=== PATIENT | female | born 1935 | race African-American/Black ===

== ENCOUNTER 2020-10-10 14:44 | Inpatient (IN) | payer MEDICARE, MEDICAID ==
[~2020-10-10] VITALS: Ht 162.6 cm; Wt 66.2 kg
[2020-10-10] MEDS ORDERED: ACETAMINOPHEN 325MG TABLET PO STA (15:16)
[2020-10-10 16:06] LABS: CHLORIDE 108 mEq/L (98-107)
[2020-10-10 16:12] LABS: BASOPHILS % 0.4 % (0.0-2.0); EOSINOPHILS % 0.8 % (0.0-5.0); HEMATOCRIT. 31.8 % (36.0-48.0); HEMOGLOBIN. 10.4 g/dL (12.0-16.0); LYMPHOCYTES % 18.8 % (20.0-50.0); MEAN CORPUSCULAR HEMOGLOBIN 30.9 pg (28.0-32.0); MEAN CORPUSCULAR VOLUME 94.8 fL (81.0-99.0); MEAN PLATELET VOLUME 7.9 fl (7.4-10.4); MONOCYTES % 14.1 % (2.0-8.0); NEUTROPHILS % 65.9 % (40.0-76.0); PLATELET 240 x1000/uL (130-400); RED BLOOD CELL COUNT 3.35 mill/uL (4.2-5.4); RED CELL DISTRIBUTION WIDTH 16.8 % (11.6-14.6)
[2020-10-10] MEDS ORDERED: FUROSEMIDE 100MG/10ML VIAL IV STA (17:41)
[2020-10-10] MEDS ORDERED: NITROGLYCERIN OINT 1GM/INCH UDPKT TD NR (17:45)
[2020-10-10] MEDS ORDERED: CALCIUM GLUCONATE 100MG/ML 10ML VIAL IV NR (17:45)
[2020-10-10] MEDS ORDERED: ASPIRIN 325MG EC TABLET PO NR (17:45)
[2020-10-10] MEDS ORDERED: IPRATROPIUM/ALBUTEROL 0.5-3(2.5)MG/3ML NEB NEB PRN (19:45)
[2020-10-10] MEDS ORDERED: GUAIFENESIN 200MG/10ML SUGAR FREE UDC PO PRN (19:45)
[2020-10-10] MEDS ORDERED: ONDANSETRON HCL 4MG/2ML INJ IV PRN (19:45)
[2020-10-10] MEDS ORDERED: TRAMADOL 50MG TABLET PO PRN (19:45)
[2020-10-10] MEDS ORDERED: DOCUSATE SODIUM 100MG CAPSULE PO PRN (19:45)
[2020-10-10] MEDS ORDERED: MAGNESIUM/ALUMINUM HYDROXIDE/SIMETHICONE 30ML UDC PO PRN (19:45)
[2020-10-10] MEDS ORDERED: CLONIDINE 0.1MG TABLET PO PRN (19:45)
[2020-10-10] MEDS ORDERED: DEXTROSE 50% WATER 50ML SYRINGE IV PRN (19:45)
[2020-10-10] MEDS ORDERED: ACETAMINOPHEN 325MG TABLET PO PRN ×2 (19:45)
[2020-10-10] MEDS ORDERED: NITROGLYCERIN 0.4MG TABLET SL SL PRN (19:45)
[2020-10-10] MEDS ORDERED: ZOLPIDEM TARTRATE 5MG TABLET PO PRN (19:45)
[2020-10-10] MEDS ORDERED: ENOXAPARIN 30MG/0.3ML SYR SUBCUT SCH (20:00)
[2020-10-10 20:18] LABS: T4 FREE 1.27 ng/dL (0.76-1.46)
[2020-10-10] MEDS: AMLODIPINE 10MG TABLET PO SCH (20:30)
[2020-10-10 20:42] LABS: FOLIC ACID (FOLATE) SERUM > 20.00 ng/mL (>5.38)
[2020-10-10] MEDS: GUAIFENESIN/DM 600MG/30MG ER TAB 12HR PO SCH (20:44)
[2020-10-10] MEDS: INSULIN LISPRO 100 UNITS/ML SUBCUT SCH (21:00)
[2020-10-10 21:09] LABS: VITAMIN B12 SERUM 748 pg/mL (211-911)
[2020-10-10] MEDS: FAMOTIDINE 20MG TABLET PO SCH (21:17)
[2020-10-10] MEDS: BLOOD SUGAR DIAGNOSTIC STRIP TEST SCH (21:17)
[2020-10-10] MEDS: ASCORBIC ACID 500 MG TABLET PO SCH (21:17)
[2020-10-10] MEDS: FUROSEMIDE 40MG/4ML VIAL IVP SCH (21:25)
[2020-10-10] MEDS: APIXABAN 2.5 MG TABLET PO SCH (21:31)
[2020-10-10 22:00] VITALS: BP 152/80
[2020-10-10] MEDS ORDERED: XAR15 MT (23:58)
[2020-10-10] MEDS ORDERED: METO-411 PO (23:58)
[2020-10-10] MEDS ORDERED: LORA10TA7 MT (23:58)
[2020-10-10] MEDS ORDERED: NEPVIT MT (23:58)
[2020-10-10] MEDS ORDERED: AMLO5TAB88 MT (23:58)
[2020-10-10] MEDS ORDERED: LEVO100T9 MT (23:58)
[2020-10-11] VITALS: BP 144/72
[2020-10-11 00:20] LABS: CREATINE KINASE 38 IU/L (26-192)
[2020-10-11 00:21] LABS: CREATINE KINASE MB FRACTION < 1.0 ng/mL (0.5-3.6)
[2020-10-11 04:00] VITALS: BP 112/69
[2020-10-11 06:03] LABS: CHLORIDE 108 mEq/L (98-107)
[2020-10-11 06:12] LABS: HEMATOCRIT. 27.6 % (36.0-48.0); HEMOGLOBIN. 8.8 g/dL (12.0-16.0); MEAN CORPUSCULAR HEMOGLOBIN 30.2 pg (28.0-32.0); MEAN CORPUSCULAR VOLUME 94.4 fL (81.0-99.0); PLATELET 206 x1000/uL (130-400); RED BLOOD CELL COUNT 2.93 mill/uL (4.2-5.4); RED CELL DISTRIBUTION WIDTH 16.6 % (11.6-14.6)
[2020-10-11 06:14] LABS: PHOSPHORUS 3.8 mg/dL (2.5-4.9)
[2020-10-11 06:17] LABS: CREATINE KINASE 35 IU/L (26-192)
[2020-10-11 06:20] LABS: CREATINE KINASE MB FRACTION < 1.0 ng/mL (0.5-3.6)
[2020-10-11] MEDS: CARVEDILOL 3.125 MG TABLET PO SCH ×2 (06:36→17:14)
[2020-10-11] MEDS: BLOOD SUGAR DIAGNOSTIC STRIP TEST SCH ×4 (06:45→20:59)
[2020-10-11] MEDS: INSULIN LISPRO 100 UNITS/ML SUBCUT SCH ×4 (07:15→20:59)
[2020-10-11 08:00] VITALS: BP 110/62
[2020-10-11] MEDS: FAMOTIDINE 20MG TABLET PO SCH ×2 (08:35→20:53)
[2020-10-11] MEDS: ZINC SULFATE 220 MG ( 50 ) CAPSULE PO SCH (08:35)
[2020-10-11] MEDS: FUROSEMIDE 40MG/4ML VIAL IVP SCH ×2 (08:35→20:53)
[2020-10-11] MEDS: GUAIFENESIN/DM 600MG/30MG ER TAB 12HR PO SCH ×2 (08:35→20:53)
[2020-10-11] MEDS: ASCORBIC ACID 500 MG TABLET PO SCH ×2 (08:35→20:53)
[2020-10-11] MEDS: ASPIRIN 81MG EC TABLET PO SCH (08:35)
[2020-10-11] MEDS: APIXABAN 2.5 MG TABLET PO SCH ×2 (08:36→20:53)
[2020-10-11] MEDS: AMLODIPINE 10MG TABLET PO SCH (08:36)
[2020-10-11 09:42] LABS: PLATELET ESTIMATE NORMAL
[2020-10-11 12:00] VITALS: BP 121/62
[2020-10-11 16:00] VITALS: BP 129/72
[2020-10-11 20:00] VITALS: BP 124/71
[2020-10-12] VITALS: BP 126/68
[2020-10-12 04:00] VITALS: BP 142/80
[2020-10-12] MEDS: BLOOD SUGAR DIAGNOSTIC STRIP TEST SCH ×4 (05:45→21:10)
[2020-10-12] MEDS: INSULIN LISPRO 100 UNITS/ML SUBCUT SCH ×4 (06:01→21:00)
[2020-10-12] MEDS: GUAIFENESIN/DM 600MG/30MG ER TAB 12HR PO SCH ×2 (06:06→21:48)
[2020-10-12] MEDS: CARVEDILOL 3.125 MG TABLET PO SCH ×2 (06:06→17:28)
[2020-10-12 08:00] VITALS: BP 126/79
[2020-10-12] MEDS: FUROSEMIDE 40MG/4ML VIAL IVP SCH ×2 (08:10→21:48)
[2020-10-12] MEDS: ZINC SULFATE 220 MG ( 50 ) CAPSULE PO SCH (08:10)
[2020-10-12] MEDS: AMLODIPINE 10MG TABLET PO SCH (08:10)
[2020-10-12] MEDS: APIXABAN 2.5 MG TABLET PO SCH ×2 (08:11→21:48)
[2020-10-12] MEDS: ASCORBIC ACID 500 MG TABLET PO SCH ×2 (08:11→21:48)
[2020-10-12] MEDS: ASPIRIN 81MG EC TABLET PO SCH (08:11)
[2020-10-12 12:00] VITALS: BP 107/63
[2020-10-12 16:00] VITALS: BP 120/65
[2020-10-12 20:00] VITALS: BP 117/64
[2020-10-12] MEDS ORDERED: FAMOTIDINE 20MG TABLET PO SCH (21:00)
[2020-10-13] VITALS: BP 127/72
[2020-10-13 04:00] VITALS: BP 116/71
[2020-10-13] MEDS: BLOOD SUGAR DIAGNOSTIC STRIP TEST SCH ×2 (05:45→11:45)
[2020-10-13] MEDS: INSULIN LISPRO 100 UNITS/ML SUBCUT SCH ×2 (05:45→11:51)
[2020-10-13] MEDS: CARVEDILOL 3.125 MG TABLET PO SCH (06:21)
[2020-10-13] MEDS: GUAIFENESIN/DM 600MG/30MG ER TAB 12HR PO SCH (06:35)
[2020-10-13 08:00] VITALS: BP 132/70
[2020-10-13] MEDS: ASCORBIC ACID 500 MG TABLET PO SCH (08:51)
[2020-10-13] MEDS: APIXABAN 2.5 MG TABLET PO SCH (08:51)
[2020-10-13] MEDS: FUROSEMIDE 40MG/4ML VIAL IVP SCH (08:51)
[2020-10-13] MEDS: ZINC SULFATE 220 MG ( 50 ) CAPSULE PO SCH (08:51)
[2020-10-13] MEDS: ASPIRIN 81MG EC TABLET PO SCH (08:52)
[2020-10-13] MEDS: AMLODIPINE 10MG TABLET PO SCH (08:52)
[2020-10-13 11:01] VITALS: BP 132/70
[2020-10-13 12:00] VITALS: BP 128/77
== END 2020-10-13 12:30 | disposition home health service (06) | DRG 194 ==
LOC: ER 14:44 → 5WST 19:10 → EDBEDREQ 19:15 → EDBEDREQTM 19:15 → SUPCPDRO 19:38 → ENRESERV 21:05 → CANRESERV 21:09
PROVIDERS: ADMIT Internal Medicine; ATTEND Internal Medicine
DX: I11.0 Hypertensive heart disease with heart failure (principal); N17.0 Acute kidney failure with tubular necrosis; E44.0 Moderate protein-calorie malnutrition; I48.91 Unspecified atrial fibrillation; D63.8 Anemia in other chronic diseases classified elsewhere; E87.5 Hyperkalemia; E11.9 Type 2 diabetes mellitus without complications; E03.9 Hypothyroidism, unspecified; J44.9 Chronic obstructive pulmonary disease, unspecified; D64.9 Anemia, unspecified; M19.90 Unspecified osteoarthritis, unspecified site; E87.1 Hypo-osmolality and hyponatremia; E83.51 Hypocalcemia; I50.33 Acute on chronic diastolic (congestive) heart failure; Z87.891 Personal history of nicotine dependence; Z79.890 Hormone replacement therapy; Z79.899 Other long term (current) drug therapy; Z82.49 Family history of ischemic heart disease and other diseases of the circulatory system; Z83.3 Family history of diabetes mellitus; Z79.4 Long term (current) use of insulin
CPT/HCPCS: 36415; 71045; 80048; 80053; 80061; 82550; 82553; 82607; 82746; 82962; 83036; 83540; 83550; 83735; 83880; 84100; 84439; 84443; 84484; 85025; 93005; 93306; 93970; 97162; 97166; 99291; J0610; J1940